=== PATIENT | female | born 1970 | race African-American/Black ===

== ENCOUNTER 2018-04-13 14:12 | Emergency (ER) | payer OTHER ==
[2018-04-13] MEDS: HYDROCODONE/APAP (5/325) TAB PO (15:02)
[2018-04-13] MEDS: IBUPROFEN 600 MG TAB PO (15:02)
[2018-04-13] MEDS: ONDANSETRON (ODT) 4 MG TAB ODT (15:05)
[2018-04-13] MEDS: ONDANSETRON 4 MG INJ IV (16:47)
[2018-04-13] MEDS: morphine 4 MG/ML VIAL IV (16:48)
[2018-04-13 16:58] LABS: ADD MAN DIFF? NO
[2018-04-13 17:01] LABS: WHITE BLOOD COUNT 7.5 10^3/ul (4.8-10.8)
[2018-04-13 17:01] LABS: BASOPHIL # 0.1 10^3/ul (0.0-0.1); BASOPHILS % 0.8 % (0.0-2.0); EOSINOPHILS % 0.5 % (0.0-7.0); HEMATOCRIT 39.5 % (37.0-47.0); HEMOGLOBIN 12.4 g/dl (12.0-16.0); LYMPHOCYTES # 1.8 10^3/ul (0.8-2.9); LYMPHOCYTES % 23.9 % (15.0-51.0); MEAN CORPUSCULAR HEMOGLOBIN 23.8 pg (29.0-33.0); MEAN CORPUSCULAR HGB CONC 31.4 g/dl (32.0-37.0); MEAN CORPUSCULAR VOLUME 75.8 fl (82.0-101.0); MONOCYTE # 0.5 10^3/ul (0.3-0.9); MONOCYTES % 6.8 % (0.0-11.0); NEUTROPHIL # 5.1 10^3/ul (1.6-7.5); NEUTROPHILS % 67.6 % (39.0-77.0); PLATELET COUNT 239 10^3/UL (140-415); RED BLOOD COUNT 5.21 10^6/ul (4.20-5.40); RED CELL DISTRIBUTION WIDTH 14.5 % (11.5-14.5)
[2018-04-13 17:18] LABS: ALANINE AMINOTRANSFERASE 22 IU/L (13-69); ALBUMIN 3.7 g/dl (3.3-4.9); ALBUMIN/GLOBULIN RATIO 1.32; ALKALINE PHOSPHATASE 52 IU/L (42-121); ANION GAP 13 (8-16); ASPARTATE AMINO TRANSFERASE 17 IU/L (15-46); BILIRUBIN,INDIRECT 0.9 mg/dl (0-1.1); BILIRUBIN,TOTAL 0.9 mg/dl (0.2-1.3); BLOOD UREA NITROGEN 11 mg/dl (7-20); CALCIUM 9.1 mg/dl (8.4-10.2); CARBON DIOXIDE 25 mmol/L (21-31); CHLORIDE 108 mmol/L (97-110); CREATININE 0.83 mg/dl (0.44-1.00); GLUCOSE 98 mg/dl (70-220); POTASSIUM 4.1 mmol/L (3.5-5.1); SODIUM 142 mmol/L (135-144); TOTAL PROTEIN 6.5 g/dl (6.1-8.1)
[2018-04-13 17:21] LABS: INR 0.96; PARTIAL THROMBOPLASTIN TIME 28.4 Sec (25.0-35.0); PROTIME 12.9 Sec (11.9-14.9)
[2018-04-13] MEDS: SOD CHLORIDE 0.9% 100 ML (18:31)
[2018-04-13] MEDS: IOHEXOL 100 ML (18:31)
== END 2018-04-13 20:54 | disposition home or self-care (01) ==
LOC: FTE 14:12
DX: S80.02XA Contusion of left knee, initial encounter (principal); V06.1 Pedestrian injured in collision with other nonmotor vehicle in traffic accident
CPT/HCPCS: 29505; 36415; 73562; 73590; 73706; 80053; 81025; 85025; 85610; 85730; 96374; 96375; 99285-25

== ENCOUNTER 2018-09-11 06:24 | Day surgery (SDC) | payer OTHER ==
[2018-09-11] MEDS: CEFAZOLIN 2 GM/50 ML (PMX) 50 ML IVPB ×2 (07:30→09:38)
[2018-09-11] MEDS ORDERED: PROPOFOL 20 ML (07:40)
[2018-09-11] MEDS ORDERED: METOCLOPRAMIDE 10 MG INJ (07:40)
[2018-09-11] MEDS ORDERED: ONDANSETRON 4 MG INJ (07:40)
[2018-09-11] MEDS ORDERED: CEFAZOLIN 1 GM INJ (07:40)
[2018-09-11] MEDS ORDERED: MEPERIDINE 100 MG INJ (07:40)
[2018-09-11] MEDS ORDERED: LIDOCAINE 2% (SDV) 5 ML INJ (07:40)
[2018-09-11] MEDS ORDERED: FENTAnyl 50 MCG/ML VIAL IV ×3 (09:00)
[2018-09-11] MEDS ORDERED: MEPERIDINE 25 MG INJ IV (09:00)
[2018-09-11] MEDS ORDERED: EPHEDrine SULFATE 50 MG/5 ML SYG IV (09:00)
[2018-09-11] MEDS ORDERED: hydrALAzine 20 MG INJ IV (09:00)
[2018-09-11] MEDS ORDERED: METOCLOPRAMIDE 10 MG INJ IV (09:00)
[2018-09-11] MEDS ORDERED: ONDANSETRON 4 MG INJ IV (09:00)
[2018-09-11] MEDS ORDERED: MIDAZOLAM 1 MG/ML 2 ML INJ IV (09:00)
[2018-09-11] MEDS ORDERED: LABETALOL HCL 20MG INJ IV (09:00)
[2018-09-11] MEDS ORDERED: HYDROmorphONE 1 MG/5 ML IV SYRINGE IV ×3 (09:00)
[2018-09-11] MEDS ORDERED: DIPHENHYDRAMINE 50 MG INJ IV (09:00)
[2018-09-11] MEDS ORDERED: ALBUTEROL 0.083% (NEB) 2.5 MG/3 ML AMP (09:26)
[2018-09-11] MEDS: EPINEPHrine 1 MG/ML 30 ML INJ (09:29)
[2018-09-11] MEDS: morphine SULFATE/PF (10 MG/10 ML) INJ (09:29)
[2018-09-11] MEDS: ALBUTEROL 0.083% (NEB) 2.5 MG/3 ML AMP HHN (09:37)
== END 2018-09-11 12:24 | disposition home or self-care (01) ==
LOC: SDS 06:24
DX: S83.282A Other tear of lateral meniscus, current injury, left knee, initial encounter (principal); I10 Essential (primary) hypertension; E66.01 Morbid (severe) obesity due to excess calories; R06.02 Shortness of breath; X58.XXXA Exposure to other specified factors, initial encounter; Y93.89 Activity, other specified; Y92.89 Other specified places as the place of occurrence of the external cause; Y99.8 Other external cause status
CPT/HCPCS: 29881; 84703; 94664